=== PATIENT | male | born 1975 | race Caucasian/White ===

== ENCOUNTER 2022-09-29 10:09 | Outpatient (REF) | payer SELFPAY ==
[2022-09-30 11:03] LABS: HIV-1/2 Ag & Ab Screen Negative (Negative)
[2022-09-30 12:20] LABS: Syphilis Serology (RPR) Negative (Negative)
[2022-09-30 13:09] LABS: HSV Type 1 Ab, IgG Negative (Negative); HSV Type 2 Ab, IgG Negative (Negative)
[2022-09-30 13:42] LABS: Chlamydia Result Negative (Negative); GC Result Negative (Negative)
== END 2022-09-29 10:10 | disposition home or self-care (01) ==
LOC: LBN 10:09
PROVIDERS: Visit Provider Nurse Practitioner Family
DX: N48.89 Other specified disorders of penis (principal); Z11.3 Encounter for screening for infections with a predominantly sexual mode of transmission; Z11.4 Encounter for screening for human immunodeficiency virus [HIV]; Z11.59 Encounter for screening for other viral diseases
CPT/HCPCS: 87389; 87491; 87529; 87591; 86592; 86695; 86696

== ENCOUNTER 2023-04-10 14:31 | Outpatient (REF) | payer SELFPAY | END 2023-04-10 14:32 | disposition home or self-care (01) | LOC: LBN 14:31 | PROVIDERS: Visit Provider Nurse Practitioner Family | DX: J02.9 Acute pharyngitis, unspecified (principal) | CPT/HCPCS: 87070 ==